=== PATIENT | male | born 1945 | race Caucasian/White ===

== ENCOUNTER 2021-03-19 14:56 | Inpatient (IN) | payer OTHER ==
[~2021-03-19] VITALS: Ht 175.3 cm; Wt 83.5 kg
[2021-03-19] VITALS (7 sets, daily range): BP systolic 118–182; BP diastolic 68–115
--- NOTE | ~2021-03-19 | EMS ---
[facility] [address] [place] [address] EMS Patient Care Report Name: SAMUEL FLORES Room #: 433-I ADM IN M.R.#: [id number] Admission: 03/19/21 Attend Phys: Jorge Alberto Jordan MD Discharge: Date of : 49 Report #: [id number] THIS REPORT FOR: //name// Report Transmitted: 03/23/2021 10:10 EMS Care Summary [place], [place]/[facility] Incident [id number] @ 03/19/2021 14:23 Incident Location [address] [place] [id number] Patient SAMUEL FLORES Male, 75 Years 1945 Patient Address [address] [place] [address] Patient History Diabetes,Hypertension (HTN),Pacemaker/AICD, Patient Allergies Penicillin allergy, Patient Medications Lisinopril, Omeprazole, Chief Complaint WEAKNESS Disposition Transported No Lights/Van Dispatch Reason Unconscious/Fainting Transported To [facility] Narrative M41 DISPATCHED TO A FAINTING WITH P37. M41 AOS AND FOUND A MALE PT WITH P37. PT STATES THAT HE CAME INTO URGENT CARE AFTER FEELING WEAK FOR A FEW HOURS. THE PT STATES THAT HE IS A DIABETIC AND [facility] [address] [place] [address] EMS Patient Care Report Name: SAMUEL FLORES Room #: 433-I ADM IN Ariel#: [id number] Admission: 03/19/21 Attend Phys: Jorge Alberto Jordan MD Discharge: Date of : 49 Report #: [id number] THAT HE DOES HAVE A CARDIAC HX AND HAS A PACEMAKER. THE PT STATES THAT HE IS NOT IN ANY PAIN. PT DENIES CP, SOA, NV, ABD PAIN. PT STATES THAT HE DOES FEEL DIZZY. MED HX, ALLERGIES, AND MEDICATION OBTAINED. PT MOVED TO THE STRETCHER AND INTO THE AMBULANCE. IN THE AMBULANCE VITALS OBTAINED. BGA OBTAINED WHICH READ HIGH. IV ACCESS ATTEMPTED AND FAILED. 4 AND 12 LEAD EKG OBTAINED. M[address] [place]. EN ROUTE PT REMAINED STABLE. REPORT GIVEN TO HARLEY SALINAS. SIGNATURES OBTAINED. TRANSFER OF CARE TOOK PLACE. M41 IN SERVICE. SHANTEL VACA POLITICAL ADVISOR Initial Vitals @14:41P: 95,WV Suspected: false @14:43P: 137, @14:46P: 97,R: 18,BP: 169/115,Pain: 0/10,GCS: 15,SpO2: 100,Revised Trauma: 12, @14:40P: 97,R: 18,BP: 188/144,Pain: 0/10,GCS: 15,Glucose: -2,SpO2: 98,Revised Trauma: 12, Assessments @14:33MENTAL:Place Oriented,Event Oriented,Time Oriented,Person Oriented,SKIN:HEENT:Head/Face: No Abnormalities,Neck/Airway: No Abnormalities,LUNG SOUNDS:General: No Abnormalities,ABDOMEN:General: No Abnormalities,PELVIS//GI:No Abnormalities,EXTREMITIES:Capillary Refill: Right Upper: < 2 Sec,Left Arm: No Abnormalities,Right Arm: No Abnormalities,Left Leg: No Abnormalities,Right Leg: No Abnormalities,PULSE:Radial: 2+ Normal,NEURO:No Abnormalities, Impression Generalized Weakness Procedures @14:4112-Lead ECGResponse: UnchangedSucceeded@14:33ALS AssessmentResponse: UnchangedSucceeded@14:403-Lead ECGResponse: UnchangedSucceeded@14:42Saline Lock 0cc (20 ga) Site: Antecubital-RightResponse: UnchangedSucceeded Timeline 14:21,Call Received [facility] [address] [place] [address] EMS Patient Care Report Name: SAMUEL FLORES Room #: 433-I ADM IN M.R.#: [id number] Admission: 03/19/21 Attend Phys: Jorge Alberto Jordan MD Discharge: Date of : 49 Report #: [id number] 14:21,Dispatch Notified 14:23,Dispatched 14:23,En Route 14:32,On Scene 14:33,At Patient 14:33,ALS Assessment,Response: UnchangedSucceeded, 14:40,3-Lead ECG,Response: UnchangedSucceeded, 14:40,BP: 188/144 M,PULSE: 97,RR: 18 R,SPO2: 98 Ox,ETCO2: ,BG: -2,PAIN: 0,GCS: 15, 14:41,12-Lead ECG,Response: UnchangedSucceeded, 14:41,BP: / M,PULSE: 95,RR: R,SPO2: Ox,ETCO2: ,BG: ,PAIN: ,GCS: , 14:42,Saline Lock 0cc 20 ga Site: Antecubital-Right,Response: UnchangedSucceeded, 14:43,BP: / M,PULSE: 137,RR: R,SPO2: Ox,ETCO2: ,BG: ,PAIN: ,GCS: , 14:46,BP: 169/115 M,PULSE: 97,RR: 18 R,SPO2: 100 Ox,ETCO2: ,BG: ,PAIN: 0,GCS: 15, 14:46,Depart Scene 14:53,At Destination 15:07,Call Closed Disclaimer v1.1 Copyright 2020 [employer] This EMS Care Summary contains data elements from the applicable legal record (which may be displayed differently). It is designed to provide pertinent information for the following purposes: continuity of care, clinical quality, and state data reporting. The complete legal record is available to ED staff and administrators of the receiving hospital in [employer]'s Patient Tracker. All data is provided "as is."
[2021-03-19] MEDS ORDERED: OMEPRAZOLE20 M1 PO (15:02)
[2021-03-19] MEDS ORDERED: LISINOPRIL20 MG PO (15:02)
[2021-03-19 15:30] LABS: HCO3 14.9 mmol/L (22.0-26.0); PO2 97.1 mmHg (80.0-100.0); pH 7.438 (7.360-7.450); sO2 97.7 % (92.0-98.0)
[2021-03-19 15:31] LABS: PCO2 22.6 mmHg (35.0-45.0)
[2021-03-19 16:27] LABS: ABSOLUTE NEUTROPHILS 7.9 thou/uL (1.4-8.2); BASOPHILS 0.4 % (0.0-2.0); EOSINOPHILS 0.5 % (0.0-3.0); HEMATOCRIT 42.9 % (42.0-52.0); HEMOGLOBIN 13.9 gm/dL (14.0-18.0); LYMPHOCYTES 11.1 % (24.0-44.0); MCH 29.2 pg (26.0-34.0); MCHC 32.5 g/dL (28.0-37.0); MCV 89.7 fL (80.0-100.0); MONOCYTES 5.4 % (1.0-8.0); PLATELET COUNT 194 thou/uL (150-400); POLYS 82.6 % (36.0-66.0); RBC 4.78 mil/uL (4.50-6.00); RDW 16.1 % (10.5-14.5); WBC 9.6 thou/uL (4.0-11.0)
[2021-03-19 16:52] LABS: ALBUMIN 3.9 g/dL (3.4-5.0); CALCIUM 9.4 mg/dL (8.5-10.1); CREATININE 2.4 mg/dL (0.7-1.3); MAGNESIUM 2.6 mg/dL (1.8-2.4); POTASSIUM 5.4 mmol/L (3.5-5.1); TOTAL PROTEIN 8.9 g/dL (6.4-8.2)
[2021-03-19 16:52] LABS: URINE BILIRUBIN NEGATIVE (Negative); URINE BLOOD TRACE (Negative); URINE CLARITY CLEAR; URINE COLOR YELLOW; URINE GLUCOSE-RANDOM* 3+ (Negative); URINE KETONES NEGATIVE (Negative); URINE NITRITE-REFLEX NEGATIVE (Negative); URINE PROTEIN (DIPSTICK) NEGATIVE (Negative); URINE UROBILINOGEN 0.2 E.U./dl (0.2-1.0)
[2021-03-19 16:53] LABS: URINE LEUKOCYTES-REFLEX 1+ (Negative)
[2021-03-19 17:00] LABS: CASTS None Seen /LPF (None Seen); SQUAMOUS 4-10 Moderate /LPF (0-3)
[2021-03-19 17:01] LABS: BACTERIA-REFLEX None Seen /HPF (None Seen); CRYSTALS None Seen /LPF (None Seen); URINE RBC 1-2 Rare /HPF (NONE SEEN)
--- NOTE | 2021-03-19 17:50 | NUR ---
VAT CONSULTED IN ER FOR PICC AFTER MULTIPLE IV AND LAB DRAW ATTEMPTS. DISCUSSED BENEFITS AND RISK WITH PT ,VERBALIZED UNDERSTANDING. MARIA ANTONIA MAY WAS WIDELY PATENT WITH USG. 5FR DL BIOFLO PICC TRIMMED TO 52CM INSERTED TO 3CM EXTERNAL WITH 3WAVE CONFIRMATION. PICC RELEASED FOR IMMEDIATE USE PER PROTOCOL. PT TOLERATED WELL
[2021-03-19 18:07] LABS: APTT 25.8 Seconds (24.5-32.8); INR 1.06; PROTIME 11.5 Seconds (10.5-12.1)
--- NOTE | 2021-03-19 22:15 | NUR ---
This RN admitted patient at 2030. Patient on insulin gtt. This RN spoke with GUANAKO Davis regarding labs and cramping in patients hand. Orders received, labs impending.
[2021-03-19 22:25] LABS: CALCIUM 8.5 mg/dL (8.5-10.1)
[2021-03-19 22:26] LABS: POTASSIUM 3.9 mmol/L (3.5-5.1)
[2021-03-20] VITALS (18 sets, daily range): BP systolic 92–159; BP diastolic 68–103
[2021-03-20 02:40] LABS: CALCIUM 8.1 mg/dL (8.5-10.1); CREATININE 1.6 mg/dL (0.7-1.3); POTASSIUM 3.9 mmol/L (3.5-5.1)
[2021-03-20 02:46] LABS: CHOLESTEROL 114 mg/dL (<200); HDL CHOLESTEROL 16 mg/dL (>40); LDL CHOLESTEROL 67 mg/dL (<100); TC:HDL 7.1 Ratio (Not establshd); TRIGLYCERIDE 159 mg/dL (<150); VLDL 32 mg/dL (<40)
[2021-03-20 02:55] LABS: SERUM ASSESSMENT Clear
--- NOTE | 2021-03-20 07:58 | NUR ---
SPEAKING WITH THE PT THIS MORNING REGARDING MEDICATION REGIMEN, STATES THAT HE USES LISINOPRIL AND OMEPRAZOLE AT HOME BUT THERES ABOUT EIGHT MEDICATION THAT HE TAKES THAT HE CANNOT STATE TOP OF HIS HEAD AT THIS TIME, RN TO LOOK INTO TO ASSIST IN PROVIDING MEDICAL CARE. NORMALLY UTILIZES [place] AT [address]
--- NOTE | 2021-03-20 09:26 | EKG ---
[address] [address] ELECTROCARDIOGRAM REPORT Name: SAMUEL FLORES Room #: 239-P ADM IN M.R.#: [id number] Admission: 03/19/21 Attend Phys: Jorge Alberto Jordan MD Discharge: Date of : 49 Report #: [id number] [facility] ED Test Date: 2021-03-19 Test Time: 14:56:26 Pat Name: SAMUEL FLORES Department: Room: 239 Gender: M Semaphore Operator: BATSHEVA : 1945 Requested By: Gallo Alamo Order Number: [id number] MD: Dani Tovar Measurements Intervals Petal Rate: 80 P: 70 CO: 138 QRS: 4 QRSD: 89 T: 69 QT: 363 QTc: 419 Interpretive Statements Sinus rhythm Right atrial abnormality No previous ECG available for comparison Electronically Signed On 03-20-2021 9:26:11 CDT by Dani Tovar [email or web address] <ELECTRONICALLY SIGNED> By: Dani Tovar MD, [facility] 03/20/21 0926 [id number] [id number] Dani Tovar MD, FACC /EPI
[2021-03-20] MEDS ORDERED: VITAMIN D310 MCG PO (18:05)
[2021-03-20] MEDS ORDERED: HYTRIN 2MG CAPSU2 MG PO (18:07)
[2021-03-20 19:19] LABS: CALCIUM 7.9 mg/dL (8.5-10.1); CREATININE 1.3 mg/dL (0.7-1.3); POTASSIUM 3.4 mmol/L (3.5-5.1)
[2021-03-21] VITALS (22 sets, daily range): BP systolic 111–156; BP diastolic 53–94
[2021-03-21 03:05] LABS: GLYCOHEMOGLOBIN (HGB A1C) 11.7 % (4.8-5.6)
[2021-03-21 11:41] LABS: CALCIUM 8.2 mg/dL (8.5-10.1); CREATININE 1.3 mg/dL (0.7-1.3); POTASSIUM 3.6 mmol/L (3.5-5.1)
--- NOTE | 2021-03-21 11:49 | NUR ---
Chart review, Dx DKA/ high BS. Willie visited with guru at bedside. A & O, able to make his needs know. Intro to cm and kamronp. He lives in [facility] with his petra # [phone]. Live in house, no steps to enter, 8 steps to basement with 1 handrail. Independent. No dme, checks own bs at home, no on any medication for DM. Dr Delatorre is his PCP with [facility]. Manage own medication. Drives vehicle. 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 No hh or rehab in the past. We here visiting my son he was in a play that i missed since i go sick and am here per guru. No anticipated needs at ma. Will cont following as needed.
--- NOTE | 2021-03-21 20:26 | NUR ---
Pt is progressing towards plan of care as evidenced by blood sugar of <200 and change of insulin gtt to [facility]
[2021-03-22] VITALS (10 sets, daily range): BP systolic 116–155; BP diastolic 59–91
[2021-03-22 06:16] LABS: CALCIUM 8.2 mg/dL (8.5-10.1); CREATININE 1.2 mg/dL (0.7-1.3); POTASSIUM 4.1 mmol/L (3.5-5.1)
--- NOTE | 2021-03-22 15:31 | NUR ---
ON-GOING ASSESSMENT: CM REVIEWED CHART. PATIENT TRANSFERED TODAY FROM ICU TO . PER ATTENDING PT IS NEEDING 24/7 MONITORING AND LIKELY HOME HEALTH FOR MEDICATION MANAGEMENT AT DISCHARGE. CM SPOKE WITH PATIENTS ROGELIO TO DISCUSS. SHE REPORTS SHE UNDERSTAND SOMEONE SHOULD BE WITH PATIENT 24/7 SUPERVISION AND REPORTS SHE IS ABLE TO OFFER THAT. SHE REPORTS IF SHE HAS ERRANDS THEY ALSO HAVE FAMILY THAT CAN ASSIST. SHE REPORTS THEIR PLAN IS FOR PATIENT TO GO BACK TO [facility] AT DISCHARGE. CM SPOKE WITH ABOUT HELPING ASSIST PATIENT WITH MEDICATION MANAGEMENT/MONITORING AND SHE REPORTS SHE CAN DO THIS. CM ALSO DISCUSSED HH AND THEY ARE OPEN TO HH REFERRALS AND NO PREFERENCE OF AGENCY. CM REACHED OUT OT MULTIPLE HH AGENCIES :[facility]:CM FAXED REFERRAL, [facility] DOES NOT ACCEPT [facility] CANNOT ACC[facility]PT, [facility] ONLY [facility] P[facility] HH IN [facility]. CM ALSO ATTEMPTED [facility], [facility] AND [facility] WHO CANNOT ACCEPT.
--- NOTE | 2021-03-22 16:20 | NUR ---
ASSUMED CARE OF PT THIS MORNING AROUND 1030. PT WAS A TRANSFER FROM ICU. PT ALERT AND ORIENTED TIMES FOUR. VSS, IVF INFUSING PER ORDER. PT DENEIS PAIN/SOA. PT TOLERATES MEDS AND MEALS. PT UP AB ЮЛИЯ WITH STEADY GAIT. PT AT BEDSIDE. PT PROGRESSING TOWRADS POC GOALS.
[2021-03-23 00:13] VITALS: BP 135/91
--- NOTE | 2021-03-23 03:36 | NUR ---
PT DENIES ANY DISCOMFORT. SAYS HE JUST WANTS TO BE DISCHARGED. CONTINUES ON IVF,AFEBRILE. HS BS OF 154 @. NO FURTHER CONCERNS.
[2021-03-23 08:00] VITALS: BP 150/78
[2021-03-23 08:12] VITALS: BP 150/93
[2021-03-23] MEDS ORDERED: LEVOFLOXACIN500 MG PO (13:18)
[2021-03-23] MEDS ORDERED: ACETAMINOPHEN325 M1 PO (13:18)
[2021-03-23] MEDS ORDERED: ATORVASTATIN CA10 MG PO (13:18)
[2021-03-23] MEDS ORDERED: LANTUS SUBQ (13:18)
[2021-03-23] MEDS ORDERED: METFORMIN HCL500 MG PO (13:18)
--- NOTE | 2021-03-23 14:01 | NUR ---
ON-GOING ASSESSMENT: CM REVIEWED CHART. AFTER CONTACT MANY HH COMPANIES CM WAS DIRECTED TO CALL PATIENTS PCP OFFICE WHICH IS DR. FABI BELLE [phone] AND CM SPOKE WITH NATHALY WHO REPORTS THAT SINCE PATIENTS PCP IS THROUGH THE [facility] THEY WILL HAVE TO GET AUTH FOR PATIENT TO BEGIN SERVICES WITH HOME HEALTH. SHE STATES THIS IS A PROCESS AND CM WILL HAVE TO FAX DISCHARGE PAPERWORK INCLUDING WHAT SERVICES ARE NEEDED AND THIS WILL INITIATE THE PROVIDER TO REVIEW AND PLACE A CONSULT TO SEE IF HOME HEALTH SERVICES ARE APPROVED, IF SO THEY [facility] THEN AT THAT TIME WILL ARRANGE WITH A HH AGENCY AND THE HOME HEALTH AGENCY WILL THEN REACH OUT TO PATIENT BUT MAY TAKE A WEEK OR SO. CM NOTIFIED HER THAT PATIENT IS DISCHARGING TODAY. CM NOTIFIED PT AND HIS AMPARO WHO ARE AGREEABLE WITH THE PLAN AND ENCOURGAED THEM TO FOLLOW UP WITH DR. FABI BELLE OFFICE IF HE HAS NOT HEARD ANYTHING WITHIN A WEEK. PTS REPORTS IN THE MEANTIME SHE CAN HELP ASSIST PATIENT WITH MEDICATION MANAGEMENT AND PROVIDE 24/7 SUPERVISION. CM NOTIFIED ATTENDING OF SITUATION. PT AND REPORT PLANNING ON DRIVING BACK TO [place], [place] ONCE LEAVING THE HOSPITAL. PTS PCP THROUGH [facility] DR. FABI BELLE [phone] FAX:[phone].
[2021-03-23 14:52] VITALS: BP 150/93
== END 2021-03-23 15:34 | disposition home health service (06) | DRG 871 ==
LOC: ER 14:56 → EROBS 18:13 → ICU 18:13 → 4S 18:13 → ICU 19:40 → 4S 03-22 09:26
PROVIDERS: Emergency Medicine; Nurse Practitioner Family; ADMIT Internal Medicine; ATTEND Internal Medicine
PROC: 05HY33Z Insertion of Infusion Device into Upper Vein, Percutaneous Approach (ICD-10-PCS; principal; 2021-03-19)
DX: A41.9 Sepsis, unspecified organism (principal); E11.10 Type 2 diabetes mellitus with ketoacidosis without coma; N17.0 Acute kidney failure with tubular necrosis; G92.9 Unspecified toxic encephalopathy; E87.1 Hypo-osmolality and hyponatremia; N39.0 Urinary tract infection, site not specified; I16.0 Hypertensive urgency; N18.9 Chronic kidney disease, unspecified; E87.5 Hyperkalemia; E83.42 Hypomagnesemia; Z79.899 Other long term (current) drug therapy; K21.9 Gastro-esophageal reflux disease without esophagitis; E78.5 Hyperlipidemia, unspecified; Z20.822 Contact with and (suspected) exposure to COVID-19; Z88.0 Allergy status to penicillin; E11.65 Type 2 diabetes mellitus with hyperglycemia; Z79.4 Long term (current) use of insulin; I12.9 Hypertensive chronic kidney disease with stage 1 through stage 4 chronic kidney disease, or unspecified chronic kidney disease; E11.22 Type 2 diabetes mellitus with diabetic chronic kidney disease; Z95.0 Presence of cardiac pacemaker; Z83.3 Family history of diabetes mellitus
CPT/HCPCS: 10078; 10195; 27000